=== PATIENT | male | born 1995 | race Caucasian/White ===

== ENCOUNTER 2017-04-17 21:42 | Inpatient (IN) | payer OTHER ==
[~2017-04-17] VITALS: Ht 198.1 cm; Wt 85.9 kg
[2017-04-17 22:37] LABS: BASO % 0.2 %; BASO ABS # 0.02 K/uL (0-0.2); COMPLETE YES; EOS % 1.8 %; HEMATOCRIT 42.6 % (42-52); IG% 0.2 %; LYMPH % 13.7 %; LYMPH ABS # 1.49 K/uL (1.2-3.4); MEAN CELL VOLUME 89.9 fL (80-100); MEAN CORPUSCULAR HEMOGLOBIN 30.6 pg (25-34); MEAN PLATELET VOLUME 11.3 fL (7.4-10.4); MONO % 5.9 %; NEUT % 78.2 %; PLATELET COUNT 225 K/uL (130-400); RED BLOOD COUNT 4.74 M/uL (4.7-6.1); WHITE BLOOD COUNT 10.86 K/uL (4.8-10.8)
[2017-04-17] MEDS ORDERED: FEXO1TAB49 PO (22:48)
[2017-04-17] MEDS ORDERED: SERT-234 PO (22:48)
[2017-04-17] MEDS ORDERED: ALPR-411 PO (22:48)
[2017-04-17] MEDS ORDERED: TRIA1SPR4 NAE (22:48)
[2017-04-17 22:59] LABS: BUN/CREATININE RATIO 13.2 (10-20); CREATININE 1.17 mg/dl (0.60-1.40); POTASSIUM 3.9 mmol/L (3.5-5.1)
--- NOTE | 2017-04-17 23:02 | EMERGENCY ROOM VISIT NOTE ---
History Report prepared by Fabrizio: Theresa Vieyra Under the Supervision of: Dr. Rajeev Paredes M.D. First contact with patient: 21:58 Chief Complaint: MENTAL HEALTH EVALUATION Stated Complaint: DEPRESSION,SUICIDAL THOUGHTS History of Present Illness The patient is a 21 year old male who presents to the Emergency Room for a mental health evaluation. The patient notes worsening suicidal thoughts. He notes he didn't feel safe in his apartment so he called his friend to take him to the hospital. The patient states he had a plan to overdoes on Xanax and alcohol. He notes he did not drink any alcohol tonight. The patient was previously admitted psychiatric reasons in high school. The patient takes Zoloft , Xanax, over the counter Steffany, and Nasacort. He denies any fever. The patient has a history of asthma. Source of History: patient Position: other (global) Quality: other (sucidal thoughts) Timing: worsening Associated Symptoms: No fevers Review of Systems See HPI for pertinent positives & negatives. A total of 10 systems reviewed and were otherwise negative. Past Medical & Surgical Medical Problems: (1) Alcohol use disorder (2) Asthma (3) Binge eating disorder (4) Generalized anxiety disorder (5) Major depressive disorder, recurrent severe without psychotic features (6) Seasonal allergies Family History No pertinent family history stated. Social History Smoking Status: Never Smoker Marital Status: single Occupation Status: [employer] student Current/Historical Medications Scheduled Alprazolam (Xanax), 0.5 MG PO PRN UD Fexofenadine Hcl (Steffany Allergy), 1 TAB PO DAILY Sertraline (Zoloft), 100 MG PO DAILY Triamcinolone Acetonide (Nasal (Nasacort Allergy 24Hr), 1 SPRAY ELEN DAILY Allergies Coded Allergies: Shellfish (Verified Allergy, Unknown, throat swelling, 04/17/17) Uncoded Allergies: ENVIRONMENTAL (Allergy, Severe, ASTHMA SYMPTOMS, 04/17/17) Physical Exam Vital Signs Date Time Temp Pulse Resp B/P (MAP) Pulse Ox O2 Delivery O2 Flow Rate FiO2 04/17/17 23:40 68 15 142/69 98 Room Air 04/17/17 21:48 36.8 85 20 149/80 97 Room Air Physical Exam GENERAL: Patient is a healthy-appearing well-nourished male HEAD: Normocephalic atraumatic EYES: Ocular movements intact pupils equal and react to light OROPHARYNX mucous membranes are moist no exudates present no erythema or edema present NECK: Supple no nuchal rigidity CHEST: Good equal expansion LUNGS: Clear and equal to auscultation CARDIAC: Normal S1 and S2 ABDOMEN: Soft nontender no guarding BACK: No CVA tenderness EXTREMITIES: No pain upon palpation normal muscle strength in all groups no clubbing cyanosis or edema NEURO: Patient is following commands and answering questions appropriately. Alert and oriented x3 Cranial Nerves 2-12 grossly intact PSYCH: Admits to suicidal ideation with plan. Medical Decision & Procedures Laboratory Results 04/17/17 22:21 Red Blood Count 4.74, Mean Corpuscular Volume 89.9, Mean Corpuscular Hemoglobin 30.6, Mean Corpuscular Hemoglobin Concent 34.0, Mean Platelet Volume 11.3, Neutrophils (%) (Auto) 78.2, Lymphocytes (%) (Auto) 13.7, Monocytes (%) (Auto) 5.9, Eosinophils (%) (Auto) 1.8, Basophils (%) (Auto) 0.2, Neutrophils # (Auto) 8.49, Lymphocytes # (Auto) 1.49, Monocytes # (Auto) 0.64, Eosinophils # (Auto) 0.20, Basophils # (Auto) 0.02 04/17/17 22:21 Test 04/17/17 22:21 04/17/17 22:24 04/17/17 23:52 White Blood Count 10.86 K/uL (4.8-10.8) Red Blood Count 4.74 M/uL (4.7-6.1) Hemoglobin 14.5 g/dL (14.0-18.0) Hematocrit 42.6 % (42-52) Mean Corpuscular Volume 89.9 fL (80-100) Mean Corpuscular Hemoglobin 30.6 pg (25-34) Mean Corpuscular Hemoglobin Concent 34.0 g/dl (32-36) Platelet Count 225 K/uL (130-400) Mean Platelet Volume 11.3 fL (7.4-10.4) Neutrophils (%) (Auto) 78.2 % Lymphocytes (%) (Auto) 13.7 % Monocytes (%) (Auto) 5.9 % Eosinophils (%) (Auto) 1.8 % Basophils (%) (Auto) 0.2 % Neutrophils # (Auto) 8.49 K/uL (1.4-6.5) Lymphocytes # (Auto) 1.49 K/uL (1.2-3.4) Monocytes # (Auto) 0.64 K/uL (0.11-0.59) Eosinophils # (Auto) 0.20 K/uL (0-0.5) Basophils # (Auto) 0.02 K/uL (0-0.2) RDW Standard Deviation 41.2 fL (36.4-46.3) RDW Coefficient of Variation 12.6 % (11.5-14.5) Immature Granulocyte % (Auto) 0.2 % Immature Granulocyte # (Auto) 0.02 K/uL (0.00-0.02) Anion Gap 7.0 mmol/L (3-11) Est Creatinine Clear Calc Drug Dose 121.6 ml/min Estimated GFR () 102.7 Estimated GFR (Non- 88.6 BUN/Creatinine Ratio 13.2 (10-20) Calcium Level 9.0 mg/dl (8.5-10.1) Total Bilirubin 0.5 mg/dl (0.2-1) Direct Bilirubin 0.1 mg/dl (0-0.2) Aspartate Amino Transf (AST/SGOT) 23 U/L (15-37) Alanine Aminotransferase (ALT/SGPT) 26 U/L (12-78) Alkaline Phosphatase 132 U/L (45-117) Total Protein 7.0 gm/dl (6.4-8.2) Albumin 4.2 gm/dl (3.4-5.0) Thyroid Stimulating Hormone (TSH) 1.830 uIu/ml (0.300-4.500) Ethyl Alcohol mg/dL < 3.0 mg/dl (0-3) Bedside Glucose 83 mg/dl (70-99) Urine Color DK YELLOW Urine Appearance CLOUDY (CLEAR) Urine pH 5.0 (4.5-7.5) Urine Specific [place] 1.033 (1.000-1.030) Urine Protein NEG (NEG) Urine Glucose (UA) NEG (NEG) Urine Ketones 1+ (NEG) Urine Occult Blood NEG (NEG) Urine Nitrite NEG (NEG) Urine Bilirubin NEG (NEG) Urine Urobilinogen NEG (NEG) Urine Leukocyte Esterase NEG (NEG) Urine WBC (Auto) 1-5 /hpf (0-5) Urine RBC (Auto) 10-30 /hpf (0-4) Urine Hyaline Casts (Auto) 1-5 /lpf (0-5) Urine Epithelial Cells (Auto) 5-10 /lpf (0-5) Urine Bacteria (Auto) NEG (NEG) Urine Opiates Screen NEG (NEG) Urine Methadone, Qualitative NEG (NEG) Urine Barbiturates NEG (NEG) Urine Phencyclidine (PCP) Level NEG (NEG) Ur Amphetamine/Methamphetamine NEG (NEG) MDMA (Ecstasy) Screen NEG (NEG) Urine Benzodiazepines Screen POS (NEG) Urine Cocaine Metabolite NEG (NEG) Urine Marijuana (THC) NEG (NEG) Labs reviewed by ED physician. ED Course 2251: Past medical records reviewed. The patient was evaluated in room A7. A complete history and physical examination was performed. 2318: I offered to talk to the patient's mother and he declined. 0032: After talking to his mother, the patient is willing to be admitted. 1315: The patient being admitted to [address] [place] [address]. He will be evaluated further. Medical Decision Differential diagnosis: Etiologies such as mood disorder, infection, hypoglycemia, electrolyte abnormalities, cardiac sources, intracerebral event, toxicologic, neurologic, as well as others were entertained. This is a 21-year-old male who presents to the emergency department complaining of suicidal ideation. The patient reports he has been feeling well medically. He was able to provide a urine sample has a normal CBC normal renal profile. I did discuss the case with the [facility] liaison who felt that the patient could be admitted. Patient was in agreement with the treatment plan. Blood Pressure Screening Patient's blood pressure: Elevated blood pressure Blood pressure disposition: Referred to PCP Impression Primary Impression: Mood disorder Scribe Attestation The scribe's documentation has been prepared under my direction and personally reviewed by me in its entirety. I confirm that the note above accurately reflects all work, treatment, procedures, and medical decision making performed by me. Departure Information Dispostion Admitted as an inpatient Referrals [facility] (PCP) Patient Instructions My [facility]
[2017-04-17 23:09] LABS: THYROID STIMULATING HORMONE 1.83 uIu/ml (0.300-4.500)
[2017-04-18 00:10] LABS: URINE APPEARANCE CLOUDY (CLEAR); URINE BILIRUBIN NEG (NEG); URINE COLOR DK YELLOW; URINE NITRITE NEG (NEG); URINE SPECIFIC GRAVITY 1.033 (1.000-1.030); UROBILINOGEN NEG (NEG)
[2017-04-18 00:11] LABS: MANUAL MICROSCOPIC REQUIRED? NO; REVIEW REQ? NO
[2017-04-18 00:31] LABS: BENZODIAZEPINE, URINE POS (NEG); COCAINE,URINE NEG (NEG); PHENCYCLIDINE, URINE NEG (NEG)
[2017-04-18] MEDS ORDERED: NURSING VERBAL MED ORDER ONE ×2 (01:30→02:30)
[2017-04-18 01:38] VITALS: O2SAT 96
[2017-04-18] MEDS ORDERED: ALUMINUM/MAGNESIUM SUSP 30 ML UDC PO PRN (02:15)
[2017-04-18] MEDS ORDERED: ACETAMINOPHEN 325 MG TAB PO PRN (02:15)
[2017-04-18] MEDS ORDERED: hydrOXYzine HCL 25 MG TAB PO PRN ×2 (02:15)
[2017-04-18] MEDS ORDERED: BISMUTH SUBSALICYLATE PER ML OMNICELL CHARGE PO PRN (02:15)
[2017-04-18] MEDS ORDERED: SODIUM CHLORIDE 0.65% NA SOLN 45 ML (OCEAN) PRN (02:15)
[2017-04-18] MEDS ORDERED: MAGNESIUM HYDROXIDE SUSP 30 ML UDC PO PRN (02:15)
[2017-04-18 03:24] VITALS: BP 131/60; PULSE 78; TEMP 36.8; Ht 198.1 cm; Wt 85.9 kg
[2017-04-18 06:43] VITALS: BP_SYST 117; BP_SYST 128; BP_DIAS 65; BP_DIAS 70; PULSE 60; PULSE 96; TEMP 36.4
[2017-04-18] MEDS ORDERED: SERTRALINE HCL 100 MG TAB PO SCH (09:00)
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
[2017-04-18] MEDS ORDERED: SERTRALINE HCL 50 MG TAB PO ONE (11:15)
[2017-04-19 07:01] VITALS: BP_SYST 133; BP_SYST 139; BP_DIAS 67; BP_DIAS 72; PULSE 66; PULSE 90; TEMP 36.8
[2017-04-19] MEDS: FEXOFENADINE HCL 180 MG TAB PO SCH (08:18)
[2017-04-19] MEDS: SERTRALINE HCL 50 MG TAB PO SCH (08:18)
[2017-04-19] MEDS: TRIAMCINOLONE ACET NASAL SPRAY 10.8ML BTL NAE SCH (08:18)
--- NOTE | 2017-04-19 14:00 | Psychiatric Progress Notes ---
Progress Note Date of Service Apr 19, 2017. Interval History 21-year-old [employer] [facility] student admitted voluntarily with severe depression and acute thoughts of suicide by overdose. He was recently started back on Zoloft by his outpatient psychiatrist currently at a dose of 100 mg. We will continue to titrate this to 150 mg. He also appears to have generalized anxiety disorder , had been using Xanax, although in the face of his significant alcohol abuse, we'll discontinue this. We will use Vistaril when necessary in the event of panic. He also meets criteria for binge eating disorder although we will defer treatment of this to his outpatient psychiatrist. We recommend that he stop drinking at this time. We will coordinate with his current outpatient providers. At this time he requires inpatient mental health treatment due to the severity of his condition and the risk for self-harm if discharged. Chief Complaint "I'm good. ". Subjective Patient was seen & assessed interval progress reviewed with Treatment Team. The patient says that he is finding the time away from his stressors to be "incredible". He is able to focus on himself, which he says he is embarrassed to admit, that he had not been doing. He has resolved to move in a direction to help others. he has been thinking about this even before the hospitalization and now realizes how important this idea is to him. He knows that there is no [facility] on campus and he is interested in starting one, seeing that it would benefit him and some of his friends. He denies having any SI today and says that he is sleeping and eating well. He notes some mild agitation since starting the 150 mg. of zoloft but is not sure if it is just restlessness, being in one area all the time. He is "learning a ton" in groups and staff report that he is a good participant. His mother will be coming to town today and will stay until discharge as he is going to her home for the break this coming week. He is hopeful for discharge this weekend. Review of Systems Constitutional: No fever, No chills, No sweats, No weight loss, No weakness, No fatigue, No problem reported ENT: No hearing loss, No unusual epistaxis, No nasal symptoms, No sore throat, No tinnitus, No dental problems, No trouble swallowing, No problem reported Respiratory: No cough, No sputum, No wheezing, No shortness of breath, No dyspnea on exertion, No dyspnea at rest, No hemoptysis, No problem reported Cardiovascular: No chest pain, No orthopnea, No PND, No edema, No claudication , No palpitations, No problem reported Abdomen: No pain, No nausea, No vomiting, No diarrhea, No constipation, No GI bleeding, No problem reported Musculoskeletal: No joint pain, No muscle pain, No swelling, No calf pain, No problem reported Neurologic: No memory loss, No paralysis, No weakness, No numbness/tingling, No vertigo, No balance problems, No problem reported Psychiatric: + depression symptoms (improving) Integumentary: No rash, No itch, No new/changing skin lesions, No color change , No bleeding, No problem reported Sleep Information Total Hours of Sleep: 6.50 Meal Information Percent of Breakfast Consumed: 100 Percent of Lunch Consumed: 100 Percent of Dinner Consumed: 100 Mental Status Exam During interview pt is: alert and oriented, cooperative Appearance: appropriately dressed, appropriately groomed Eye contact is: good Motor behavior is: steady gait & station, no abnormal motor movements Speech: normal in rate, rhythm & volume Affect: depressed, flat Mood is: depressed Thought process: goal directed Thought content: reality based without delusions Suicidal thought are: present, Plan: present (to overdose on Xanax with alcohol ) Homicidal thoughts are: denied Hallucinations: denies auditory, denies visual Cognition: memory grossly intact, attention grossly intact, language grossly intact Intelligence estimated to be: average Insight: impaired Judgement: impaired Impression Adjusting well to milieu therapy and making good use of groups. Some mild agitation with increase to Zoloft but will monitor. it does not seem that he is activated, but more describing restlessness. Will look for any pattern. Will have meeting with mother. Although he seems to have had a flight into health, if he can maintain the improved mood and he will be going home with his mother, then it may be OK to consider discharge sometime this weekend. Plan (1) Major depressive disorder, recurrent severe without psychotic features 04/18 - Continue titration of Zoloft 150 mg daily - Obtain outpatient records from an coordinate care with current providers - Every 15 minute checks for safety - Encourage participation in group and individual counseling - Assist the patient to learn and utilize additional healthy coping strategies - Family meeting if indicated 04/19 - Continue currernt meds - Meeting with mother (2) Generalized anxiety disorder 04/18 - Will DC Xanax in view of recent alcohol abuse in favor of when necessary Vistaril - Assist the patient to explore concepts of mindfulness - Zoloft as above (3) Binge eating disorder 04/18 - Monitor for binge eating during the hospitalization - vyvanse is the only FDA approved medication for eating disorder and will defer treatment to his outpatient provider (4) Asthma 04/18 - Continue home Flonase and Steffany (5) Alcohol use disorder 04/19 - Recommend abstinence for the foreseeable future. Has been reviewed with Dr. Sophie Anderson Discharge / Aftercare Planning Primary Care Physician: Name: [facility] Therapist: Name: Shailesh VERMA Radio Mechanic Apprentice: Name: Griselda Visit Code E&M Code: 43075 Inventory Assets Strengths: Intelligence, desire to get well Needs: Abstain from alcohol Risk Factors Assessment Male: Yes : Yes /single/: Yes Higher / Fall in social status: No Health problems: No Mental Health Diagnoses: Yes Substance use disorders: Yes (alcohol) Previous attempt: No Previous psychiatric stay: No Hopelessness: No Smoker: No Protective Factors Assessment : No Responsible for young children: No Employed: Yes Stable relationships: No Supportive family: Yes Good rapport with provider: Yes Data Vital Signs Last 24 Hrs: Date Time Temp Pulse Resp B/P (MAP) Pulse Ox O2 Delivery O2 Flow Rate FiO2 04/19/17 07:01 36.8 66 16 133/72 90 139/67 Meds Administered Last 24 Hrs: Meds Administered (Past 24Hrs) Medications (Trade) Dose Ordered Sig/Bertha Route Start Time Stop Time Status Last Admin Dose Admin Sertraline HCl (Zoloft Tab) 100 mg DAILY PO 04/18/17 09:00 04/18/17 10:50 DC 04/18/17 08:58 100 MG Fexofenadine HCl (Steffany Tab) 180 mg DAILY PO 04/19/17 09:00 05/19/17 08:59 04/19/17 08:18 180 MG Triamcinolone Acetonide (Nasacort Allergy 24hr) 2 sprays DAILY ELEN 04/19/17 09:00 05/19/17 08:59 04/19/17 08:18 2 SPRAYS Sertraline HCl (Zoloft Tab) 150 mg QAM PO 04/19/17 09:00 05/19/17 08:59 04/19/17 08:18 150 MG Sertraline HCl (Zoloft Tab) 50 mg 1115 ONCE PO 04/18/17 11:15 04/18/17 11:16 DC 04/18/17 12:11 50 MG Lab Results Last 24 Hrs: 04/17/17 22:21 Red Blood Count 4.74, Mean Corpuscular Volume 89.9, Mean Corpuscular Hemoglobin 30.6, Mean Corpuscular Hemoglobin Concent 34.0, Mean Platelet Volume 11.3, Neutrophils (%) (Auto) 78.2, Lymphocytes (%) (Auto) 13.7, Monocytes (%) (Auto) 5.9, Eosinophils (%) (Auto) 1.8, Basophils (%) (Auto) 0.2, Neutrophils # (Auto) 8.49, Lymphocytes # (Auto) 1.49, Monocytes # (Auto) 0.64, Eosinophils # (Auto) 0.20, Basophils # (Auto) 0.02 04/17/17 22:21 Test 04/17/17 22:21 04/17/17 22:24 04/17/17 23:52 White Blood Count 10.86 K/uL (4.8-10.8) Red Blood Count 4.74 M/uL (4.7-6.1) Hemoglobin 14.5 g/dL (14.0-18.0) Hematocrit 42.6 % (42-52) Mean Corpuscular Volume 89.9 fL (80-100) Mean Corpuscular Hemoglobin 30.6 pg (25-34) Mean Corpuscular Hemoglobin Concent 34.0 g/dl (32-36) Platelet Count 225 K/uL (130-400) Mean Platelet Volume 11.3 fL (7.4-10.4) Neutrophils (%) (Auto) 78.2 % Lymphocytes (%) (Auto) 13.7 % Monocytes (%) (Auto) 5.9 % Eosinophils (%) (Auto) 1.8 % Basophils (%) (Auto) 0.2 % Neutrophils # (Auto) 8.49 K/uL (1.4-6.5) Lymphocytes # (Auto) 1.49 K/uL (1.2-3.4) Monocytes # (Auto) 0.64 K/uL (0.11-0.59) Eosinophils # (Auto) 0.20 K/uL (0-0.5) Basophils # (Auto) 0.02 K/uL (0-0.2) RDW Standard Deviation 41.2 fL (36.4-46.3) RDW Coefficient of Variation 12.6 % (11.5-14.5) Immature Granulocyte % (Auto) 0.2 % Immature Granulocyte # (Auto) 0.02 K/uL (0.00-0.02) Anion Gap 7.0 mmol/L (3-11) Est Creatinine Clear Calc Drug Dose 121.6 ml/min Estimated GFR () 102.7 Estimated GFR (Non- 88.6 BUN/Creatinine Ratio 13.2 (10-20) Calcium Level 9.0 mg/dl (8.5-10.1) Total Bilirubin 0.5 mg/dl (0.2-1) Direct Bilirubin 0.1 mg/dl (0-0.2) Aspartate Amino Transf (AST/SGOT) 23 U/L (15-37) Alanine Aminotransferase (ALT/SGPT) 26 U/L (12-78) Alkaline Phosphatase 132 U/L (45-117) Total Protein 7.0 gm/dl (6.4-8.2) Albumin 4.2 gm/dl (3.4-5.0) Thyroid Stimulating Hormone (TSH) 1.830 uIu/ml (0.300-4.500) Ethyl Alcohol mg/dL < 3.0 mg/dl (0-3) Bedside Glucose 83 mg/dl (70-99) Urine Color DK YELLOW Urine Appearance CLOUDY (CLEAR) Urine pH 5.0 (4.5-7.5) Urine Specific [place] [employer] 1.033 (1.000-1.030) Urine Protein NEG (NEG) Urine Glucose (UA) NEG (NEG) Urine Ketones 1+ (NEG) Urine Occult Blood NEG (NEG) Urine Nitrite NEG (NEG) Urine Bilirubin NEG (NEG) Urine Urobilinogen NEG (NEG) Urine Leukocyte Esterase NEG (NEG) Urine WBC (Auto) 1-5 /hpf (0-5) Urine RBC (Auto) 10-30 /hpf (0-4) Urine Hyaline Casts (Auto) 1-5 /lpf (0-5) Urine Epithelial Cells (Auto) 5-10 /lpf (0-5) Urine Bacteria (Auto) NEG (NEG) Urine Opiates Screen NEG (NEG) Urine Methadone, Qualitative NEG (NEG) Urine Barbiturates NEG (NEG) Urine Phencyclidine (PCP) Level NEG (NEG) Ur Amphetamine/Methamphetamine NEG (NEG) MDMA (Ecstasy) Screen NEG (NEG) Urine Benzodiazepines Screen POS (NEG) Urine Cocaine Metabolite NEG (NEG) Urine Marijuana (THC) NEG (NEG)
[2017-04-20 06:37] VITALS: BP_SYST 112; BP_SYST 121; BP_DIAS 66; BP_DIAS 71; PULSE 63; PULSE 87; TEMP 36.4
[2017-04-20] MEDS: TRIAMCINOLONE ACET NASAL SPRAY 10.8ML BTL NAE SCH (09:07)
[2017-04-20] MEDS: SERTRALINE HCL 50 MG TAB PO SCH (09:07)
[2017-04-20] MEDS: FEXOFENADINE HCL 180 MG TAB PO SCH (09:07)
--- NOTE | 2017-04-20 10:21 | Psych Management Progress Note ---
Psychiatry Miscellaneous Date of Service: Apr 20, 2017. Patient seen, MS assessed. Rates mood as 7/10. Encouraged cooperation with care and treatment plan as outlined by [facility]. He reports mood is generally more anxious in the am.
--- NOTE | 2017-04-20 11:13 | Psychiatric Progress Notes ---
Progress Note Date of Service Apr 20, 2017. Interval History 21-year-old [facility] [employer] [facility] student admitted voluntarily with severe depression and acute thoughts of suicide by overdose. He was recently started back on Zoloft by his outpatient psychiatrist currently at a dose of 100 mg. We will continue to titrate this to 150 mg. He also appears to have generalized anxiety disorder , had been using Xanax, although in the face of his significant alcohol abuse, we'll discontinue this. We will use Vistaril when necessary in the event of panic. He also meets criteria for binge eating disorder although we will defer treatment of this to his outpatient psychiatrist. We recommend that he stop drinking at this time. We will coordinate with his current outpatient providers. At this time he requires inpatient mental health treatment due to the severity of his condition and the risk for self-harm if discharged. Chief Complaint "Pretty good. ". Subjective Patient was seen & assessed interval progress reviewed with Treatment Team. The patient says that he was up early and saw "an amazing sunrise" which made him happy. His mood today is good "but not quite as good as yesterday" and wonders if the rainy weather is affecting him. He rates his mood 7/10 and denies SI. His mother has arrived in town and will be staying until he is discharged. He is willing to have a meeting with her today, and is still hoping to be able to discharge this weekend. He will be going to his mom's home and is looking forward to being able to see his friends who will also be home for the holiday. Denies side effects to meds. Has been attending all groups Review of Systems Constitutional: No fever, No chills, No sweats, No weight loss, No weakness, No fatigue, No problem reported ENT: No hearing loss, No unusual epistaxis, No nasal symptoms, No sore throat, No tinnitus, No dental problems, No trouble swallowing, No problem reported Respiratory: No cough, No sputum, No wheezing, No shortness of breath, No dyspnea on exertion, No dyspnea at rest, No hemoptysis, No problem reported Cardiovascular: No chest pain, No orthopnea, No PND, No edema, No claudication , No palpitations, No problem reported Abdomen: No pain, No nausea, No vomiting, No diarrhea, No constipation, No GI bleeding, No problem reported Musculoskeletal: No joint pain, No muscle pain, No swelling, No calf pain, No problem reported Neurologic: No memory loss, No paralysis, No weakness, No numbness/tingling, No vertigo, No balance problems, No problem reported Psychiatric: + depression symptoms (improving. Mood not as good today as yesterday. ) Integumentary: No rash, No itch, No new/changing skin lesions, No color change , No bleeding, No problem reported Sleep Information Total Hours of Sleep: 6.75 Meal Information Percent of Breakfast Consumed: 100 Percent of Lunch Consumed: 100 Percent of Dinner Consumed: 100 Mental Status Exam During interview pt is: alert and oriented, cooperative Appearance: appropriately dressed, appropriately groomed Eye contact is: good Motor behavior is: steady gait & station, no abnormal motor movements Speech: normal in rate, rhythm & volume Affect: blunted Mood is: other (more optimistic) Thought process: goal directed Thought content: reality based without delusions Suicidal thought are: present, Plan: present (to overdose on Xanax with alcohol ) Homicidal thoughts are: denied Hallucinations: denies auditory, denies visual Cognition: memory grossly intact, attention grossly intact, language grossly intact Intelligence estimated to be: average Insight: fair Judgement: fair Impression Although mood remains good, its not as good as yesterday. Will have staff arrange to meet with mother today to be sure there are no concerns that we have not addressed. If he remains in good spirits and without SI, will consider discharge tomorrow. Plan (1) Major depressive disorder, recurrent severe without psychotic features 04/18 - Continue titration of Zoloft 150 mg daily - Obtain outpatient records from an coordinate care with current providers - Every 15 minute checks for safety - Encourage participation in group and individual counseling - Assist the patient to learn and utilize additional healthy coping strategies - Family meeting if indicated 04/19 - Continue currernt meds - Meeting with mother 04/20 - Continue current meds and plan (2) Generalized anxiety disorder 04/18 - Will DC Xanax in view of recent alcohol abuse in favor of when necessary Vistaril - Assist the patient to explore concepts of mindfulness - Zoloft as above (3) Binge eating disorder 04/18 - Monitor for binge eating during the hospitalization - vyvanse is the only FDA approved medication for eating disorder and will defer treatment to his outpatient provider (4) Asthma 04/18 - Continue home Flonase and Steffany (5) Alcohol use disorder 04/19 - Recommend abstinence for the foreseeable future. Has been reviewed with Dr. Sophie Anderson Discharge / Aftercare Planning Primary Care Physician: Name: [facility] Appointment Notes: as needed Psychiatrist: Name: Nidhi Mcdaniel Date of Appointment: Apr 29, 2017 Time of Appointment: 2:30 Therapist: Name: Shailesh VERMA Date of Appointment: Apr 29, 2017 Time of Appointment: 3:00 Commodities Requirements Analyst: Name: ANGELO with [facility] is making a referral to psych clinic for long-term follow up Visit Code E&M Code: 79599 Inventory Assets Strengths: Intelligence, desire to get well Needs: Abstain from alcohol Risk Factors Assessment Male: Yes : Yes /single/: Yes Higher / Fall in social status: No Health problems: No Mental Health Diagnoses: Yes Substance use disorders: Yes (alcohol) Previous attempt: No Previous psychiatric stay: No Hopelessness: No Smoker: No Protective Factors Assessment : No Responsible for young children: No Employed: Yes Stable relationships: No Supportive family: Yes Good rapport with provider: Yes Data Vital Signs Last 24 Hrs: Date Time Temp Pulse Resp B/P (MAP) Pulse Ox O2 Delivery O2 Flow Rate FiO2 04/20/17 06:37 36.4 63 16 112/71 87 121/66 Meds Administered Last 24 Hrs: Meds Administered (Past 24Hrs) Medications (Trade) Dose Ordered Sig/Bertha Route Start Time Stop Time Status Last Admin Dose Admin Fexofenadine HCl (Steffany Tab) 180 mg DAILY PO 04/19/17 09:00 05/19/17 08:59 04/20/17 09:07 180 MG Triamcinolone Acetonide (Nasacort Allergy 24hr) 2 sprays DAILY ELEN 04/19/17 09:00 05/19/17 08:59 04/20/17 09:07 2 SPRAYS Sertraline HCl (Zoloft Tab) 150 mg QAM PO 04/19/17 09:00 05/19/17 08:59 04/20/17 09:07 150 MG Sertraline HCl (Zoloft Tab) 50 mg 1115 ONCE PO 04/18/17 11:15 04/18/17 11:16 DC 04/18/17 12:11 50 MG Lab Results Last 24 Hrs: 04/17/17 22:21 Red Blood Count 4.74, Mean Corpuscular Volume 89.9, Mean Corpuscular Hemoglobin 30.6, Mean Corpuscular Hemoglobin Concent 34.0, Mean Platelet Volume 11.3, Neutrophils (%) (Auto) 78.2, Lymphocytes (%) (Auto) 13.7, Monocytes (%) (Auto) 5.9, Eosinophils (%) (Auto) 1.8, Basophils (%) (Auto) 0.2, Neutrophils # (Auto) 8.49, Lymphocytes # (Auto) 1.49, Monocytes # (Auto) 0.64, Eosinophils # (Auto) 0.20, Basophils # (Auto) 0.02 04/17/17 22:21 Test 04/17/17 22:21 04/17/17 22:24 04/17/17 23:52 White Blood Count 10.86 K/uL (4.8-10.8) Red Blood Count 4.74 M/uL (4.7-6.1) Hemoglobin 14.5 g/dL (14.0-18.0) Hematocrit 42.6 % (42-52) Mean Corpuscular Volume 89.9 fL (80-100) Mean Corpuscular Hemoglobin 30.6 pg (25-34) Mean Corpuscular Hemoglobin Concent 34.0 g/dl (32-36) Platelet Count 225 K/uL (130-400) Mean Platelet Volume 11.3 fL (7.4-10.4) Neutrophils (%) (Auto) 78.2 % Lymphocytes (%) (Auto) 13.7 % Monocytes (%) (Auto) 5.9 % Eosinophils (%) (Auto) 1.8 % Basophils (%) (Auto) 0.2 % Neutrophils # (Auto) 8.49 K/uL (1.4-6.5) Lymphocytes # (Auto) 1.49 K/uL (1.2-3.4) Monocytes # (Auto) 0.64 K/uL (0.11-0.59) Eosinophils # (Auto) 0.20 K/uL (0-0.5) Basophils # (Auto) 0.02 K/uL (0-0.2) RDW Standard Deviation 41.2 fL (36.4-46.3) RDW Coefficient of Variation 12.6 % (11.5-14.5) Immature Granulocyte % (Auto) 0.2 % Immature Granulocyte # (Auto) 0.02 K/uL (0.00-0.02) Anion Gap 7.0 mmol/L (3-11) Est Creatinine Clear Calc Drug Dose 121.6 ml/min Estimated GFR () 102.7 Estimated GFR (Non- 88.6 BUN/Creatinine Ratio 13.2 (10-20) Calcium Level 9.0 mg/dl (8.5-10.1) Total Bilirubin 0.5 mg/dl (0.2-1) Direct Bilirubin 0.1 mg/dl (0-0.2) Aspartate Amino Transf (AST/SGOT) 23 U/L (15-37) Alanine Aminotransferase (ALT/SGPT) 26 U/L (12-78) Alkaline Phosphatase 132 U/L (45-117) Total Protein 7.0 gm/dl (6.4-8.2) Albumin 4.2 gm/dl (3.4-5.0) Thyroid Stimulating Hormone (TSH) 1.830 uIu/ml (0.300-4.500) Ethyl Alcohol mg/dL < 3.0 mg/dl (0-3) Bedside Glucose 83 mg/dl (70-99) Urine Color DK YELLOW Urine Appearance CLOUDY (CLEAR) Urine pH 5.0 (4.5-7.5) Urine Specific [place] 1.033 (1.000-1.030) Urine Protein NEG (NEG) Urine Glucose (UA) NEG (NEG) Urine Ketones 1+ (NEG) Urine Occult Blood NEG (NEG) Urine Nitrite NEG (NEG) Urine Bilirubin NEG (NEG) Urine Urobilinogen NEG (NEG) Urine Leukocyte Esterase NEG (NEG) Urine WBC (Auto) 1-5 /hpf (0-5) Urine RBC (Auto) 10-30 /hpf (0-4) Urine Hyaline Casts (Auto) 1-5 /lpf (0-5) Urine Epithelial Cells (Auto) 5-10 /lpf (0-5) Urine Bacteria (Auto) NEG (NEG) Urine Opiates Screen NEG (NEG) Urine Methadone, Qualitative NEG (NEG) Urine Barbiturates NEG (NEG) Urine Phencyclidine (PCP) Level NEG (NEG) Ur Amphetamine/Methamphetamine NEG (NEG) MDMA (Ecstasy) Screen NEG (NEG) Urine Benzodiazepines Screen POS (NEG) Urine Cocaine Metabolite NEG (NEG) Urine Marijuana (THC) NEG (NEG)
[2017-04-20 15:24] LABS: HYDROXYETHYLFLURAZEPAM CONF NEGATIVE NG/ML (CUTOFF=50); HYDROXYMIDAZOLAM NEGATIVE NG/ML (CUTOFF=50); HYDROXYTRIAZOLAM CONF NEGATIVE NG/ML (CUTOFF=50); TEMAZEPAM CONF NEGATIVE NG/ML (CUTOFF=50)
[2017-04-21 07:00] VITALS: BP_SYST 125; BP_SYST 131; BP_DIAS 63; BP_DIAS 75; PULSE 63; PULSE 67; TEMP 36.8
[2017-04-21] MEDS: TRIAMCINOLONE ACET NASAL SPRAY 10.8ML BTL NAE SCH (08:57)
[2017-04-21] MEDS: SERTRALINE HCL 50 MG TAB PO SCH (08:58)
[2017-04-21] MEDS: FEXOFENADINE HCL 180 MG TAB PO SCH (08:58)
[2017-04-21] MEDS ORDERED: SERT-234 PO (09:11)
--- NOTE | 2017-04-21 09:17 | Discharge Instructions ---
Discharge Information Report Includes Report will include the: Discharge Instructions & Summary Admission Admission Date / Time: Apr 18, 2017 at 01:27 Reason for Admission: Depression,Suicidal Thoughts Discharge Discharge Diagnosis / Problem: Depression Condition at Discharge: Good Discharge Goals Goal(s): Decrease discomfort, Improve disease control Activity Recommendations Activity Limitations: resume your previous activity . Instructions / Follow-Up Instructions / Follow-Up . SPECIAL CARE INSTRUCTIONS: 1. Follow through with your scheduled aftercare appointments. If unable to keep an appointment, please call to reschedule. 2. Take your medication only as prescribed. Medication should not be changed or stopped without the approval of your doctor. In the event of worsening symptoms or concerns about side effects, contact your doctor immediately. 3. Utilize new healthy coping skills, anger management skills, and stress management skills learned during your hospitalization. Journal feelings and process them with a support person. Identify stressors or situations that may result in relapse, deterioration or inappropriate behaviors and develop a plan to deal with those issues. 4. If your coping skills are ineffective and you are in crisis, contact your outpatient providers for direction. If unable to reach your providers, please call the CAN HELP LINE AT or go to the closest Emergency Room. 5. Avoid alcohol and un-prescribed drugs. 6. You have been provided with the Mental Health Advance Directives Pamphlet for your review. AFTERCARE APPOINTMENTS: * Please call your insurance company prior to your scheduled appointment to confirm your aftercare providers are covered. Take your insurance information to your appointments. . Discharge / Aftercare Planning Primary Care Physician: Name: [facility] Appointment Notes: as needed Psychiatrist: Name: Nidhi Mcdaniel Date of Appointment: Apr 29, 2017 Time of Appointment: 2:30pm Therapist: Name Of Therapist: Shailesh VERMA Date of Appointment: Apr 29, 2017 Time of Appointment: 3:00pm Slitter And Cutter Operator: Name: ANGELO with [facility] is making a referral to psych clinic for long-term follow up Other: Name of Appointment #1: [facility] [address] [place] [address] Appointment #1 Notes: Call to make appointment . Follow-Up Care Plan for Follow-Up Care: The patient will return to [facility] for psychiatric care Current Hospital Diet Patient's current hospital diet: Regular Diet Discharge Diet Recommended Diet: Regular Diet Procedures Procedures Performed: No Pending Studies Pending Studies at Discharge: No Medical Emergencies . Who to Call and When: Medical Emergencies: For questions or emergencies related to your hospital stay, please contact the Inpatient Behavioral Health Unit at [phone]. A lay brother is on-call 24/12 for the Behavioral Health Unit for emergencies At any time you feel your situation is an emergency, you may also call 911 immediately. . Non-Emergent Contact Non-Emergency issues call your: Psychiatrist, Therapist Advance Directives Existing Advance Directive: No Do You Have an Existing Mental: No Existing Living Will: No Existing Power of Front End Technician: No Advance Directives Info Given: To Pt/S.O. Advance Directives Reason: Declines as Mental Health Visit. Discharge Summary Admission HPI Per the Admitting provider: The patient is a 21-year-old [employer] [facility] senior who reports that he has experienced depression off and on since he was in high school. He had previously seen a psychiatrist and a therapist at home in [facility] and had a trial of Zoloft which he felt was helpful and went off of when he was better. He has not recently been on medications until seen this year by Dr. Henley at [facility] due to worsening depression. He notes that he went through a breakup with a girlfriend 3 weeks ago and his mood has been worsening in that setting. He was restarted on Zoloft which is currently at 100 mg and has been seeing Dr. Shailesh Rodríguez at [facility] for therapy. In the days leading up to hospitalization, he reports that he was feeling increasingly distressed with suicidal ideation. He's been having poor concentration, binge eating and has been noticing that his grades have been dropping in recent months. He feels like he does well at times, sees his providers and reports he is managing and then things will "blow up" and he deteriorates acutely. This was the setting in the days prior to coming to the hospital. Yesterday, he had been feeling depressed, suicidal, had gone out and purchased a bottle of alcohol with the intent of using it overdose with Xanax. He did end up calling a friend to come bring him to the hospital recognizing the severity of his condition. Today he continues to endorse feelings of depression and woke up this morning having another round of suicidal ideation. He reports that in recent weeks his sleep has been inconsistent, at times with significant initial insomnia. His appetite has been variable. He notes a decided history of binge eating, describing it is going to [employer] and ordering everything off of the [employer] menu, feeling "disgusted" afterwards. He will generally hide his eating behaviors. He eats much more than would be considered normal. He has attempted to reduce this binge eating, which she sees as a pattern in his family , and is now only doing so every 1-2 weeks. He does not engage in any compensatory activities such as purging. His energy has also been inconsistent but generally low. He enjoys playing volleyball and finds that when he is doing so his energy is up but other times finds it difficult to get out of bed. He has lost interest in previously satisfying activities. He reports poor concentration, feeling that he is missing information both in conversations and during class. He reports a pattern of chronic anxiety that he feels has been going on most of his life. He also experiences panic attacks that began back in high school. He was recently prescribed Xanax for this and has been using only half of the tablet which he has found helpful. During these events he feels that he is overwhelmed, can't talk. They're triggered by just about "everything". He denies ever having had auditory or visual hallucinations. He denies clear symptoms of PTSD although does talk about an aunt who hung herself and although he was not present at the time, still has visions in his mind of that incident. He denies any discrete episodes of euphoric mood, sleeplessness or pleasure seeking behaviors that would be congruent with a bipolar disorder. Hospital Course (1) Major depressive disorder, recurrent severe without psychotic features 04/18 - Continue titration of Zoloft 150 mg daily - Obtain outpatient records from an coordinate care with current providers - Every 15 minute checks for safety - Encourage participation in group and individual counseling - Assist the patient to learn and utilize additional healthy coping strategies - Family meeting if indicated 04/19 - Continue currernt meds - Meeting with mother 04/20 - Continue current meds and plan (2) Generalized anxiety disorder 04/18 - Will DC Xanax in view of recent alcohol abuse in favor of when necessary Vistaril - Assist the patient to explore concepts of mindfulness - Zoloft as above (3) Binge eating disorder 04/18 - Monitor for binge eating during the hospitalization - vyvanse is the only FDA approved medication for eating disorder and will defer treatment to his outpatient provider (4) Asthma 04/18 - Continue home Flonase and Steffany (5) Alcohol use disorder 04/19 - Recommend abstinence for the foreseeable future. Risk Factors Assessment Male: Yes : Yes /single/: Yes Higher / Fall in social status: No Health problems: No Mental Health Diagnoses: Yes Substance use disorders: Yes (alcohol) Previous attempt: No Previous psychiatric stay: No Hopelessness: No Smoker: No Protective Factors Assessment : No Responsible for young children: No Employed: Yes Stable relationships: No Supportive family: Yes Good rapport with provider: Yes Day of Discharge Assessment COURSE OF HOSPITALIZATION: The patient has been on our unit for 3 days. He was admitted voluntarily with severe depression and suicidality in the context of academic stress. During his stay his Zoloft was increased to 150 mg daily. The patient repeatedly stated that he benefited from being removed from a stressful environment, which then allowed him to think more clearly about how he wanted to move forward. He will be returning to [facility] but has decided that his long-term desire to help other people should be put into action. He is interested in starting a [facility] group on campus for his own benefit and that of others. His mother and stepfather participated in his treatment, brief family meeting held yesterday. Mother is supportive, both mother and stepfather wanting to be supportive. His biological father also came to visit and wanted to be involved in treatment, although his relationship with his biological father is been somewhat distant and the patient decided not to have a meeting with him. [facility] is on break all next week and the patient will be returning home to his mother's. He is looking forward to meeting up with friends from high school and being with family for the holidays. He ceased to have any further suicidal thinking by the day of discharge. He was an excellent group and individual therapy participant and spends all of his time in the milieu, with peers. DAY OF DISCHARGE ASSESSMENT: Today the patient is requesting discharge. He continues to deny suicidal ideation and feels ready to go home. His mother will pick him up later this morning and they will proceed home for Thanksgiving holiday. He has prompt follow-up appointments with his current therapist and psychiatrist at [facility]. Today he is casually and appropriately dressed and groomed. Gait and station are within normal limits. Eye contact is good. Affect is smiling. Speech is of normal rate volume and tone. Thoughts are organized, goal directed, and without evidence of thought disorder. Recent and remote memory are intact per conversation. Intelligence is estimated to be average. Insight and judgment are improved over admission. Laboratory Test 04/17/17 22:21 04/17/17 22:24 04/17/17 23:52 White Blood Count 10.86 Red Blood Count 4.74 Hemoglobin 14.5 Hematocrit 42.6 Mean Corpuscular Volume 89.9 Mean Corpuscular Hemoglobin 30.6 Mean Corpuscular Hemoglobin Concent 34.0 Platelet Count 225 Mean Platelet Volume 11.3 Neutrophils (%) (Auto) 78.2 Lymphocytes (%) (Auto) 13.7 Monocytes (%) (Auto) 5.9 Eosinophils (%) (Auto) 1.8 Basophils (%) (Auto) 0.2 Neutrophils # (Auto) 8.49 Lymphocytes # (Auto) 1.49 Monocytes # (Auto) 0.64 Eosinophils # (Auto) 0.20 Basophils # (Auto) 0.02 RDW Standard Deviation 41.2 RDW Coefficient of Variation 12.6 Immature Granulocyte % (Auto) 0.2 Immature Granulocyte # (Auto) 0.02 Sodium Level 142 Potassium Level 3.9 Chloride Level 109 Carbon Dioxide Level 27 Anion Gap 7.0 Blood Urea Nitrogen 16 Creatinine 1.17 Est Creatinine Clear Calc Drug Dose 121.6 Estimated GFR () 102.7 Estimated GFR (Non- 88.6 BUN/Creatinine Ratio 13.2 Random Glucose 83 Calcium Level 9.0 Total Bilirubin 0.5 Direct Bilirubin 0.1 Aspartate Amino Transferase (AST) 23 Alanine Aminotransferase (ALT) 26 Alkaline Phosphatase 132 Total Protein 7.0 Albumin 4.2 Thyroid Stimulating Hormone (TSH) 1.830 Ethyl Alcohol mg/dL < 3.0 POC Glucose 83 Urine Color DK YELLOW Urine Appearance CLOUDY Urine pH 5.0 Urine Specific [place] 1.033 Urine Protein NEG Urine Glucose (UA) NEG Urine Ketones 1+ Urine Occult Blood NEG Urine Nitrite NEG Urine Bilirubin NEG Urine Urobilinogen NEG Urine Leukocyte Esterase NEG Urine WBC (Auto) 1-5 Urine RBC (Auto) 10-30 Urine Hyaline Casts (Auto) 1-5 Urine Epithelial Cells (Auto) 5-10 Urine Bacteria (Auto) NEG Urine Opiates Screen NEG Urine Methadone, Qualitative NEG Urine Barbiturates NEG Urine Phencyclidine (PCP) Level NEG Ur Amphetamine/Methamphetamine NEG MDMA (Ecstasy) Screen NEG Urine Hydroxyalprazolam Confirm 73 Urine Benzodiazepines Screen POS 7-Amino Clonazepam Level NEGATIVE Urine Nordiazepam Confirmation NEGATIVE Urine Hydroxyethylflurazepam Level NEGATIVE Urine Lorazepam (GC/MS) NEGATIVE Urine Oxazepam Confirm (GC/MS) NEGATIVE Urine Temazepam Confirmation NEGATIVE Urine Hydroxytriazolam Confirmation NEGATIVE Urine Hydroxymidazolam Confirmation NEGATIVE Urine Cocaine Metabolite NEG Urine Marijuana (THC) NEG Total Time Total Time Spent (min): Greater than 30 minutes Total Time Included: examination of the patient, discharge planning, medication reconciliation, communication with other providers Tobacco Cessation at Discharge Smoking Status: Never Smoker FDA approved Prescription: non-smoker
== END 2017-04-21 10:51 | disposition home or self-care (01) | DRG 885 ==
LOC: C.EDB 21:45 → C.MHU 04-18 01:27 → ENRESERV 04-18 01:35
PROVIDERS: ADMIT Psychiatry & Neurology Child & Adolescent Psychiatry; ATTEND Psychiatry & Neurology Child & Adolescent Psychiatry
DX: F33.2 Major depressive disorder, recurrent severe without psychotic features (principal); F41.1 Generalized anxiety disorder; F50.81 Binge eating disorder; J45.909 Unspecified asthma, uncomplicated; F10.10 Alcohol abuse, uncomplicated; Z81.1 Family history of alcohol abuse and dependence; Z81.8 Family history of other mental and behavioral disorders